=== PATIENT | female | born 1990 | race Caucasian/White ===

== ENCOUNTER 2018-08-26 15:07 | Inpatient (IN) ==
[2018-08-26] MEDS ORDERED: OXYTOCIN 30 UNITS/500 ML BAG IV PRN ×2 (16:31→19:53)
[2018-08-26] MEDS ORDERED: LACTATED RINGER'S 1,000 ML IV PRN (16:31)
[2018-08-26 16:55] LABS: Hematocrit (blood only) 40.1 % (37-47); Hemoglobin 13.9 g/dL (12.0-16.0); Mean Corpuscular Volume 88.1 fL (80-100); Mean Platelet Volume 11.6 fL (7.4-10.4); Platelet Count 128 K/uL (130-400); RDW Coefficient of Variation 13.5 % (11.5-14.5); RDW Standard Deviation 43.4 fL (36.4-46.3); Red Blood Count 4.55 M/uL (4.2-5.4); White Blood Count 9.83 K/uL (4.8-10.8)
[2018-08-26 17:00] LABS: Mean Corpuscular Hgb Conc 34.7 g/dL (32-36)
[2018-08-26] MEDS ORDERED: ACETAMINOPHEN W/CODEINE #3 1 TAB PO PRN (19:53)
[2018-08-26] MEDS ORDERED: DIPHTHERIA/TETANUS/PERTUSSIS 0.5 ML SYR/VIAL IM ONE (19:53)
[2018-08-26] MEDS ORDERED: HYDROCORTISONE ACETATE 25 MG SUPP PR PRN (19:53)
[2018-08-26] MEDS ORDERED: ACETAMINOPHEN 325 MG TAB PO PRN (19:53)
[2018-08-26] MEDS ORDERED: OXYCODONE/ACETAMINOPHEN 5mg/325mg TAB PO PRN (19:53)
[2018-08-26] MEDS ORDERED: BISACODYL 10 MG SUPP PR PRN (19:53)
[2018-08-26] MEDS ORDERED: IBUPROFEN 600 MG TAB PO PRN (19:53)
[2018-08-26] MEDS ORDERED: SUPERCREAM 0.870% 15 GM JAR EXT PRN (19:53)
[2018-08-26] MEDS ORDERED: BENZOCAINE 20% AER SPR 82.5 GM CAN EXT PRN (19:53)
--- NOTE | 2018-08-26 21:30 | Operative Report ---
DATE OF OPERATION: 08/26/2018 DATE OF SERVICE: 08/26/2018 She is 4, para 4. Blood type is O positive, group B strep negative, was admitted at 40 weeks 6 days in active labor about 3-4 cm on admission. Previously in the office, she has been closed, posterior, and floating, had a spontaneous labor, delivered a live female infant via direct occiput anterior position over an intact perineum. Infant was suctioned through the mouth and the nose after delivery of the head. Shoulders were delivered without difficulty. Cord was clamped and cut. Then with IV Pitocin running and fundal massage, the placenta was removed intact. Inspection of the perineum revealed no lacerations. Hemostasis was excellent. Estimated blood loss was under 100 mL. The patient tolerated delivery well. I attest to the content of the Intraoperative Record and any orders documented therein. Any exception s are noted below.
[2018-08-27 06:55] LABS: Hematocrit (blood only) 37.5 % (37-47); Hemoglobin 13.3 g/dL (12.0-16.0); Mean Corpuscular Hgb Conc 35.5 g/dL (32-36); Mean Corpuscular Volume 87.4 fL (80-100); RDW Coefficient of Variation 13.6 % (11.5-14.5); Red Blood Count 4.29 M/uL (4.2-5.4); White Blood Count 10.54 K/uL (4.8-10.8)
[2018-08-27 07:38] LABS: Mean Platelet Volume 11.5 fL (7.4-10.4); Platelet Count 96 K/uL (130-400)
[2018-08-27 07:42] LABS: Platelet Estimate Decreased (Normal)
[2018-08-27] MEDS: PRENATAL VITAMIN 1 TAB PO SCH (08:52)
[2018-08-27] MEDS: DOCUSATE SODIUM 100 MG CAP PO SCH ×3 (08:52→21:39)
--- NOTE | 2018-08-27 09:09 | Obstetrical Progress Note ---
Date of Service August 27, 2018 Physical Exam Physical Exam: abdomen soft and non tender vaginal bleeding scant no calf tenderness ambulating well Results & Data Vital Signs (Past 12 Hours) Vital Signs Temp Pulse Pulse Resp BP BP 08/27/18 04:00 37.0 C 77 18 08/27/18 00:00 36.9 C 82 18 119/69 08/26/18 21:58 99 H 121/82 08/26/18 21:25 86 124/77
--- NOTE | 2018-08-27 10:32 | Obstetrical Progress Note ---
Date of Service August 27, 2018 Assessment & Plan (1) normal course: PPD #1 pt doing well anticipate dich tomorrow Subjective Ambulation: ambulating normally Voiding: no voiding problems Passing Gas:: Yes Diet Tolerance:: regular diet Lochia:: Small Feeding Type:: breast feeding Review of Systems All systems reviewed & are unremarkable except as noted in HPI & below Physical Exam Constitutional WD/WN, vitals as above well developed and well nourished Eyes PERRL, conjunctivae normal, anicteric sclerae Neck trachea midline, no thyromegaly Respiratory normal respiratory effort, lungs clear to auscultation Auscultation: no crackles, no rales and no wheezes Cardiovascular RRR, no murmur, no edema Gastrointestinal (Abdomen) normal bowel sounds, soft, nontender, no hepatosplenomegaly Uterus is below umbilicus Musculoskeletal no cyanosis or clubbing, extremities motor strength 5/5 Skin no rashes, warm and dry Neurologic patellar DTR's 2+ bilat, sensation intact Psychiatric A+Ox3, euthymic affect Genitourinary normal external appearance Results & Data Vital Signs (Past 12 Hours) Vital Signs Temp Pulse Resp BP 08/27/18 04:00 37.0 C 77 18 08/27/18 00:00 36.9 C 82 18 119/69
[2018-08-27] MEDS ORDERED: BISACODYL 5 MG TABEC PO SCH (20:00)
[2018-08-28 07:19] LABS: Hematocrit (blood only) 38.5 % (37-47); Hemoglobin 13.4 g/dL (12.0-16.0)
[2018-08-28] MEDS: DOCUSATE SODIUM 100 MG CAP PO SCH (08:42)
[2018-08-28] MEDS: PRENATAL VITAMIN 1 TAB PO SCH (08:42)
--- NOTE | 2018-08-28 08:58 | Obstetrical Progress Note ---
Date of Service August 28, 2018 Physical Exam Physical Exam: abdomen soft and non tender vaginal bleeding scant to moderate no calf tenderness ambulating well Results & Data Vital Signs (Past 12 Hours) Vital Signs Temp Pulse Resp BP 08/28/18 00:10 36.6 C 68 18 118/70
== END 2018-08-28 12:45 | disposition home or self-care (01) | DRG 807 ==
LOC: OPB 15:07 → 4S1 15:09 → 4S2 22:23

== ENCOUNTER 2020-09-21 12:40 | Inpatient (IN) ==
[2020-09-21] MEDS ORDERED: LACTATED RINGER'S 1,000 ML IV PRN (12:56)
[2020-09-21] MEDS ORDERED: OXYTOCIN 30 UNITS/500 ML BAG IV PRN ×3 (12:56→16:50)
[2020-09-21 13:40] LABS: Hematocrit (blood only) 38.7 % (37-47); Hemoglobin 13.6 g/dL (12.0-16.0); Mean Corpuscular Hemoglobin 32.1 pg (25-34); Mean Corpuscular Hgb Conc 35.1 g/dL (32-36); Mean Corpuscular Volume 91.3 fL (80-100); Mean Platelet Volume 12.2 fL (7.4-10.4); Platelet Count 128 K/uL (130-400); Platelet Estimate Decreased (Normal); RDW Coefficient of Variation 13.4 % (11.5-14.5); RDW Standard Deviation 44.4 fL (36.4-46.3); Red Blood Count 4.24 M/uL (4.2-5.4); White Blood Count 11.77 K/uL (4.8-10.8)
[2020-09-21] MEDS ORDERED: ePHEDrine sulfate 50 MG/ML AMP ONE (13:40)
[2020-09-21] MEDS ORDERED: SODIUM CHLORIDE 0.9% INJ 10 ML VIAL ONE (13:40)
[2020-09-21] MEDS ORDERED: BUPIVACAINE 0.25% 30 ML VIAL ONE (13:40)
[2020-09-21] MEDS ORDERED: fentaNYL citrate 100 MCG/2 ML VIAL ONE (13:41)
[2020-09-21] MEDS ORDERED: fentaNYL 2MCG/ML ROPIVACAINE 1.25MG/ML 100 ML BAG EPI ONE (13:41)
[2020-09-21] MEDS ORDERED: fentaNYL 2MCG/ML ROPIVACAINE 1.25MG/ML 100 ML BAG EPI PRN (14:16)
[2020-09-21] MEDS ORDERED: diphenhydrAMINE 50 MG/ML VIAL IV PRN (14:16)
[2020-09-21] MEDS ORDERED: PROMETHAZINE HCL 6.25 MG in SODIUM CHLORIDE 0.9% 50 ML IV PRN (14:16)
[2020-09-21] MEDS ORDERED: NALOXONE HCL 0.4 MG/1 ML VIAL/CARP IV PRN (14:16)
[2020-09-21] MEDS ORDERED: NALOXONE HCL 1 MG in SODIUM CHLORIDE 0.9% 1000ML 1,000 ML IV PRN (14:16)
[2020-09-21] MEDS ORDERED: ePHEDrine sulfate 50 MG/ML AMP IV PRN (14:16)
[2020-09-21] MEDS ORDERED: ONDANSETRON INJ 2 MG/ML 2 ML VIAL IV PRN (14:16)
--- NOTE | 2020-09-21 14:16 | Anesthesiology Consultation ---
Date of Service September 21, 2020 Assessment & Plan (1) Encounter for pre-operative examination: Chart Review Chart Review: Patient NOT seen in Pre Admission Testing and Acceptable Risk for Labor Epidural Consults Requested none ASA ASA2 Proposed Anesthesia Anesthesia Type: Labor Epidural Risk / Benefits Reviewed With: PT / POA / Parent / Guardian, Accepts Plan and Informed Consent Obtained History Height/Weight Height: 5 ft 8 in Weight: 75.296 kg Allergies Allergy/AdvReac Type Severity Reaction Status Date / Time amoxicillin AdvReac Intermediate Joint Pain Verified 09/21/20 13:11 Medications Home Medications Medication Instructions Recorded Confirmed Last Taken PNV cmb#95-ferrous fumarate-FA 1 tab PO DAILY 08/26/18 08/26/18 08/26/18 [] Active Medications Generic Name Dose Route Start Last Admin Trade Name Freq PRN Reason Stop Dose Admin Lactated Ringer's 1,000 mls @ 125 mls/hr 09/21/20 12:56 09/21/20 13:15 Lr IV 09/23/20 12:55 999 mls/hr .Q8H PRN Administration L&D Protocol Protocol NPO Date Last Intake of Fluids: 09/21/20 Time Last Intake of Fluids: 12:15 Date Last Intake of Solids: 09/21/20 Time Last Intake of Solids: 12:15 Past Medical History Medical History Scoliosis Exercise / Class Metabolic Activity II 4-5 Yardwork/Stairs/Walk up hill Past Surgical History Surgical History [place] teeth extracted Past Anesthesia History No Hx of Anesthesia Complications and No Family Hx of Anesthesia Complications History of PONV No Hx of PONV and No Hx of Motion Sickness Social History Smoking Status: Never smoker Do You Dip or Chew Tobacco: No Hx Alcohol Use: No Hx Substance Use: No substance use type: does not use Physical Exam Vital Signs Last Vital Signs Temp 36.7 C 09/21/20 12:59 Pulse 72 09/21/20 14:12 Resp 22 09/21/20 12:59 BP 112/68 09/21/20 14:12 Pulse Ox 99 09/21/20 14:11 ENMT Mouth: no dentition abnormality Thyromental Distance: > or= 3.5 Finger Breadths Mallampati Class: II Neck normal visual inspection Respiratory normal respiratory effort Auscultation: lungs clear to auscultation bilaterally Cardiovascular Rate/Rhythm: regular rate and regular rhythm Psychiatric Orientation: alert Lab Results Anesthesia Preop Results Results Anesthesia Widget: WBC 11.77 K/uL (4.8-10.8) H 09/21/20 Hgb 13.6 g/dL (12.0-16.0) 09/21/20 Hct 38.7 % (37-47) 09/21/20 Plt 128 K/uL (130-400) L 09/21/20 SARS-CoV-2, RNA, NAAT NEGATIVE (NEGATIVE) 09/21/20 Testing Laboratory Results 09/21/20 13:09
[2020-09-21] MEDS ORDERED: METHYLERGONOVINE MALEATE 0.2 MG/ML AMP ONE (16:48)
[2020-09-21] MEDS ORDERED: ACETAMINOPHEN 325 MG TAB PO PRN (16:50)
[2020-09-21] MEDS ORDERED: DIPHTHERIA/TETANUS/PERTUSSIS 0.5 ML SYR/VIAL IM ONE (16:50)
[2020-09-21] MEDS ORDERED: HYDROCORTISONE ACETATE 25 MG SUPP PR PRN (16:50)
[2020-09-21] MEDS ORDERED: ACETAMINOPHEN W/CODEINE #3 1 TAB PO PRN (16:50)
[2020-09-21] MEDS ORDERED: oxyCODONE/ACETAMINOPHEN 5mg/325mg TAB PO PRN (16:50)
[2020-09-21] MEDS ORDERED: bisacodyL 10 MG SUPP PR PRN (16:50)
[2020-09-21] MEDS ORDERED: METHYLERGONOVINE MALEATE 0.2 MG/ML AMP IM ONE (16:50)
[2020-09-21] MEDS ORDERED: SUPERCREAM 0.870% 15 GM JAR EXT PRN (16:50)
[2020-09-21] MEDS ORDERED: BENZOCAINE 20% AER SPR 82.5 GM CAN EXT PRN (16:50)
--- NOTE | 2020-09-21 18:57 | Anesthesia Procedure Note ---
Date of Service September 21, 2020 Anesthesia Post Epidural Note Vital Signs Vital Signs: Temp Pulse Resp BP Pulse Ox 36.7 C 82 18 123/76 98 09/21/20 12:59 09/21/20 18:55 09/21/20 17:55 09/21/20 18:55 09/21/20 17:06 Notes Mental Status: alert / awake / arousable Nausea / Vomiting: adequately controlled Pain: adequately controlled Airway Patency, RR, SpO2: stable & adequate BP & HR: stable & adequate Hydration State: stable & adequate Neuraxial Anesthesia: was administered and sensory block is resolving Anesthetic Complications: no major complications apparent and Pt Satisfied with anesthetic care Epidural: Removed without complications and With tip intact
[2020-09-21] MEDS: IBUPROFEN 600 MG TAB PO PRN (23:03)
[2020-09-22] MEDS: IBUPROFEN 600 MG TAB PO PRN ×4 (03:15→18:36)
[2020-09-22 06:25] LABS: Hematocrit (blood only) 37.4 % (37-47); Hemoglobin 12.9 g/dL (12.0-16.0); Mean Corpuscular Hemoglobin 31.6 pg (25-34); Mean Corpuscular Hgb Conc 34.5 g/dL (32-36); Mean Corpuscular Volume 91.7 fL (80-100); RDW Coefficient of Variation 13.5 % (11.5-14.5); RDW Standard Deviation 45.1 fL (36.4-46.3); Red Blood Count 4.08 M/uL (4.2-5.4); White Blood Count 10.19 K/uL (4.8-10.8)
[2020-09-22 06:55] LABS: Mean Platelet Volume 11.8 fL (7.4-10.4); Platelet Count 97 K/uL (130-400); Platelet Estimate Decreased (Normal)
[2020-09-22] MEDS: PRENATAL VITAMIN 1 TAB PO SCH (07:34)
[2020-09-22] MEDS: DOCUSATE SODIUM 100 MG CAP PO SCH ×3 (07:34→21:06)
--- NOTE | 2020-09-22 08:01 | Operative Report (OR) ---
DELIVERY NOTE She is 5, para 5, blood type O positive, group B strep negative. Due date 09/14/2020. Was s cheduled for induction this coming Monday. She called saying she had been in labor the previous e vening. She was told to come to the hospital. When she arrived at the hospital, she was 6 cm with b ulging membranes. She labored for a while, then received epidural for pain control, and got a good r esult from the epidural. Subsequently, ruptured her membranes at about 7 cm. Fluid was clear. Her contractions spaced out. We started her on IV Pitocin, augmented her contractions with IV Pitocin, a nd she delivered a live male via direct occiput anterior position over an intact perineum. In fela was suctioned through the mouth and the nose. The cord was allowed to pulse for one full minute , then we clamped and cut the cord. Cord blood was taken. With IV Pitocin running, the placenta was removed intact. Inspection of the perineum revealed no lacerations, no bleeding. Everything was in tact. Bimanual exam revealed good contraction of the uterus. I did order an additional dose of Meth ergine. Estimated blood loss was 100 mL. Apgars deferred to the nurses. Job ID: [id number]
--- NOTE | 2020-09-22 11:31 | Obstetrical Progress Note ---
Date of Service September 22, 2020 Assessment & Plan Admission and Anticipated Discharge Date Admission Date: September 21, 2020 Physical Exam Physical Exam: abdomen soft and non tender no calf tenderness ambulating well vaginal bleeding scant hgb 12.9 Results & Data ([facility]) Vital Signs (Past 12 Hours) Vital Signs Temp Pulse Resp BP BP Pulse Ox 09/22/20 11:14 36.4 C L 60 16 122/78 99 09/22/20 07:35 36.5 C 84 16 120/80 99 09/22/20 03:15 36.6 C 71 18 107/71 96
[2020-09-22] MEDS ORDERED: bisacodyL 5 MG TABEC PO SCH (20:00)
[2020-09-23 06:24] LABS: Hematocrit (blood only) 36.5 % (37-47); Hemoglobin 12.5 g/dL (12.0-16.0)
[2020-09-23] MEDS: DOCUSATE SODIUM 100 MG CAP PO SCH (08:07)
[2020-09-23] MEDS: PRENATAL VITAMIN 1 TAB PO SCH (08:07)
[2020-09-23] MEDS: IBUPROFEN 600 MG TAB PO PRN (08:23)
--- NOTE | 2020-09-23 08:46 | Obstetrical Progress Note ---
Date of Service September 23, 2020 Assessment & Plan Admission and Anticipated Discharge Date Admission Date: September 21, 2020 Physical Exam Physical Exam: abdomen soft and non tender ambulating well no calf tenderness vaginal bleeding scant hgb 12.5 Results & Data ([facility]) Vital Signs (Past 12 Hours) Vital Signs Temp Pulse Resp BP Pulse Ox 09/22/20 23:35 36.7 C 60 16 115/73 97
== END 2020-09-23 12:20 | disposition home or self-care (01) | DRG 807 ==
LOC: OPB 12:40 → 4S1 12:52 → 4S2 20:02

== ENCOUNTER 2022-12-28 17:46 | Inpatient (IN) ==
[2022-12-28] MEDS ORDERED: LIDOCAINE 1% LOCAL 20 ML VIAL INFIL PRN (17:55)
[2022-12-28] MEDS ORDERED: OXYTOCIN 30 UNITS/500 ML BAG IV PRN ×2 (17:55→17:57)
[2022-12-28] MEDS ORDERED: LACTATED RINGER'S 1,000 ML IV PRN (17:55)
[2022-12-28] MEDS ORDERED: DIPHTHERIA/TETANUS/PERTUSSIS Vaccine (Tdap, Age 7+yrs) 0.5mL SYR/VL IM ONE (17:57)
[2022-12-28] MEDS ORDERED: bisacodyL 10 MG SUPP PR PRN (17:57)
[2022-12-28] MEDS ORDERED: ACETAMINOPHEN W/CODEINE #3 1 TAB PO PRN (17:57)
[2022-12-28] MEDS ORDERED: ACETAMINOPHEN 325 MG TAB PO PRN (17:57)
[2022-12-28] MEDS ORDERED: oxyCODONE/ACETAMINOPHEN 5mg/325mg TAB PO PRN (17:57)
[2022-12-28] MEDS ORDERED: METHYLERGONOVINE MALEATE 0.2 MG/ML AMP IM ONE (17:57)
[2022-12-28] MEDS ORDERED: BENZOCAINE 20% SPRY 85 APPLN/85 GM CAN EXT PRN (17:57)
[2022-12-28] MEDS ORDERED: HYDROCORTISONE ACETATE 25 MG SUPP PR PRN (17:57)
[2022-12-28] MEDS: IBUPROFEN 600 MG TAB PO PRN ×2 (18:10→22:26)
--- NOTE | 2022-12-28 18:13 | Delivery Summary ---
Vaginal Delivery Summary Date of Service December 28, 2022 Vaginal Delivery Summary Patient's been followed in our office for care and delivery. is well dated with a first trimester ultrasound. Blood type so positive. This is her sixth delivery. Patient was admitted in active labor at 40 weeks and 2 days gestation. Her membranes ruptured spontaneously minutes after we got her into her room. As soon as the patient got her close off she pushed about 2 times. [place] the infant's head. Infant was delivered without difficulty. was suctioned through the mouth and the nose. Cord was allowed to pulse for 1 full minute. Cord was then clamped and cut. Cord blood was taken. An IV was started. IV Pitocin was given. Placenta delivered spontaneously. Inspection of the perineum revealed no lacerations. Estimated blood loss was 100 mL.
[2022-12-28] MEDS ORDERED: OXYTOCIN 10 UNITS/ML VIAL ONE (18:16)
[2022-12-28 19:26] LABS: Hematocrit (blood only) 42.6 % (37.0-47.0); Hemoglobin 14.9 g/dl (12.0-16.0); Mean Corpuscular Hemoglobin 30.8 pg (25.0-34.0); Mean Corpuscular Volume 88.2 fL (80.0-100.0); Mean Platelet Volume 11.4 fL (9.4-12.4); Platelet Count 130 K/uL (130-400); RDW Coefficient of Variation 13.3 % (11.5-14.5); RDW Standard Deviation 42.6 fL (36.4-46.3); Red Blood Count 4.83 M/uL (4.20-5.40); White Blood Count 13.46 K/ul (4.8-10.8)
[2022-12-28] MEDS: DOCUSATE SODIUM 100 MG CAP PO SCH (21:24)
[2022-12-28] MEDS: ASPIRIN 81 MG ECTAB PO SCH (23:04)
[2022-12-29 06:19] LABS: Hematocrit (blood only) 38.3 % (37.0-47.0); Hemoglobin 13.2 g/dl (12.0-16.0); Mean Corpuscular Hemoglobin 30.7 pg (25.0-34.0); Mean Corpuscular Hgb Conc 34.5 g/dL (32.0-36.0); Mean Corpuscular Volume 89.1 fL (80.0-100.0); Mean Platelet Volume 11.5 fL (9.4-12.4); Platelet Count 121 K/uL (130-400); RDW Coefficient of Variation 13.3 % (11.5-14.5); RDW Standard Deviation 43.3 fL (36.4-46.3); White Blood Count 11.35 K/ul (4.8-10.8)
[2022-12-29] MEDS: PRENATAL VITAMIN 1 TAB PO SCH (08:04)
[2022-12-29] MEDS: DOCUSATE SODIUM 100 MG CAP PO SCH ×2 (08:05→19:49)
[2022-12-29] MEDS: IBUPROFEN 600 MG TAB PO PRN ×4 (08:05→21:32)
--- NOTE | 2022-12-29 09:11 | Obstetrical Progress Note ---
Date of Service December 29, 2022 Assessment & Plan Admission and Anticipated Discharge Date Admission Date: December 28, 2022 Subjective abdomen soft and non tender no calf tenderness ambulating well vaginal bleeding scant hgb 13.2 Results & Data Vital Signs (Past 12 Hours) Vital Signs Temp Pulse Resp BP Pulse Ox O2 Del Method 12/29/22 07:50 36.7 C 72 16 125/74 97 Room Air 12/29/22 05:00 36.7 C 77 18 128/84 97 Room Air 12/29/22 00:50 36.7 C 78 16 127/75 96 Room Air 12/28/22 21:40 36.8 C 77 18 125/72 98 Room Air
[2022-12-29] MEDS ORDERED: bisacodyL 5 MG TABEC PO SCH (20:00)
[2022-12-29] MEDS: ASPIRIN 81 MG ECTAB PO SCH (21:31)
[2022-12-30 02:05] VITALS: O2SAT 98
[2022-12-30] MEDS: IBUPROFEN 600 MG TAB PO PRN ×2 (06:49→12:35)
[2022-12-30 07:30] LABS: Hematocrit (blood only) 38.3 % (37.0-47.0); Hemoglobin 13.1 g/dl (12.0-16.0)
--- NOTE | 2022-12-30 08:22 | Obstetrical Progress Note ---
Date of Service December 30, 2022 Assessment & Plan Admission and Anticipated Discharge Date Admission Date: December 28, 2022 Subjective abdomen soft and non tender no calf tenderness ambulating well vaginal bleeding scant hgb 13.1 Results & Data Vital Signs (Past 12 Hours) Vital Signs Temp Pulse Resp BP Pulse Ox O2 Del Method 12/30/22 02:00 36.8 C 59 L 18 137/76 98 Room Air
--- NOTE | 2022-12-30 08:40 | Delivery Summary ---
Vaginal Delivery Summary Date of Service December 30, 2022 Vaginal Delivery Summary Patient has been followed in my office for care and delivery. This is the patient's sixth delivery. She was admitted to the hospital in active labor at 40 weeks and 2 days. She delivered minutes after she arrived at the hospital. Infant was delivered via direct occiput anterior position over an intact perineum. Infant was suctioned through the mouth and the nose. Placenta was removed with IV Pitocin running. Perineum was intact without any lacerations. Estimated blood loss was 100 mL.
[2022-12-30] MEDS: PRENATAL VITAMIN 1 TAB PO SCH (08:50)
[2022-12-30] MEDS: DOCUSATE SODIUM 100 MG CAP PO SCH (08:50)
[2022-12-30 09:48] VITALS: BP 130/86; RESP 16; TEMP 98.1
[2022-12-30 10:25] VITALS: PULSE 59
== END 2022-12-30 14:20 | disposition home or self-care (01) | DRG 807 ==
LOC: 4S1 17:46 → 4E2 21:01